=== PATIENT | female | born 1950 | race Caucasian/White ===

== ENCOUNTER 2022-11-01 17:11 | Emergency (ER) | payer BC ==
[~2022-11-01] VITALS: Ht 160 cm; Wt 71.2 kg
[2022-11-01] MEDS ORDERED: PERI8TAB2 (17:21)
[2022-11-01] MEDS ORDERED: INDA25TAB (17:21)
[2022-11-01] MEDS ORDERED: BISO5TAB14 (17:21)
[2022-11-01] MEDS ORDERED: ROSU20TA61 (17:21)
[2022-11-01 19:09] LABS: BASO # 0.1 10^3/uL (0.0-0.2); BASO % 0.8 % (0.0-1.0); EOS # 0.1 10^3/uL (0.0-0.5); EOS % 0.8 % (0.0-3.0); LYMPH # 0.9 10^3/uL (1.5-5.0); LYMPH % 8.2 % (24.0-44.0); MEAN CORPUSCULAR HEMOGLOBIN 29.9 pg (27.0-33.0); MEAN CORPUSCULAR HGB CONC 33.3 g/dl (32.0-36.5); MEAN CORPUSCULAR VOLUME 89.7 fl (80.0-96.0); MONO # 0.1 10^3/uL (0.0-0.8); NEUTROPHILS # 9.3 10^3/uL (1.5-8.5); NEUTROPHILS % 88.5 % (36.0-66.0); PLATELET COUNT, AUTOMATED 488 10^3/uL (150-450); RED BLOOD COUNT 4.35 10^6/uL (4.00-5.40); WHITE BLOOD COUNT 10.5 10^3/uL (4.0-10.0)
[2022-11-01 19:14] LABS: INR 0.95; PARTIAL THROMBOPLASTIN TIME 29.8 SECONDS (24.8-34.2); PROTHROMBIN TIME 12.9 SECONDS (12.5-14.5)
[2022-11-01 19:47] LABS: ALBUMIN 3.6 G/DL (3.2-5.2); BILIRUBIN,DIRECT 2.8 MG/DL (<0.4); BILIRUBIN,TOTAL 3.8 MG/DL (0.3-1.2); CALCIUM LEVEL 10.9 MG/DL (8.3-10.6); CREATININE FOR GFR 1.81 MG/DL (0.55-1.30); GLOMERULAR FILTRATION RATE 29.2 (>39); POTASSIUM SERUM 3.5 MMOL/L (3.5-5.1); TOTAL PROTEIN 7.4 G/DL (5.7-8.2)
[2022-11-01] MEDS ORDERED: NS 1,000 ML IV ONE (20:30)
[2022-11-02 00:45] VITALS: BP 159/75; TEMP 96.6; O2SAT 99
== END 2022-11-02 01:05 | disposition short-term general hospital (02) ==
LOC: M ED 17:11
DX: K83.1 Obstruction of bile duct (principal); I10 Essential (primary) hypertension; E78.5 Hyperlipidemia, unspecified; Z88.1 Allergy status to other antibiotic agents; Z79.899 Other long term (current) drug therapy

== ENCOUNTER → 2022-11-01 | Outpatient (CLI) | payer BC ==
[~2022-11-01] MED LIST: BISO5TAB14; INDA25TAB; PERI8TAB2; ROSU20TA61
[2022-11-01 14:15] LABS: BASO # 0.1 10^3/uL (0.0-0.2); BASO % 1.2 % (0.0-1.0); EOS # 0.7 10^3/uL (0.0-0.5); HEMATOCRIT 37.9 % (36.0-47.0); HEMOGLOBIN 12.7 g/dl (12.0-15.5); LYMPH % 18.3 % (24.0-44.0); MEAN CORPUSCULAR HEMOGLOBIN 29.7 pg (27.0-33.0); MEAN CORPUSCULAR HGB CONC 33.5 g/dl (32.0-36.5); MEAN CORPUSCULAR VOLUME 88.8 fl (80.0-96.0); MONO # 0.8 10^3/uL (0.0-0.8); MONO % 7.3 % (2.0-8.0); NEUTROPHILS # 7.4 10^3/uL (1.5-8.5); NEUTROPHILS % 66.7 % (36.0-66.0); PLATELET COUNT, AUTOMATED 503 10^3/uL (150-450); RED BLOOD COUNT 4.27 10^6/uL (4.00-5.40); WHITE BLOOD COUNT 11.1 10^3/uL (4.0-10.0)
[2022-11-01 14:33] LABS: LIPASE 108 U/L (12-53)
[2022-11-01 14:35] LABS: AMYLASE 120 U/L (30-118)
[2022-11-01 14:46] LABS: HEPATITIS B SURFACE ANTIGEN NEGATIVE (NEGATIVE)
[2022-11-01 15:06] LABS: HEPATITIS B CORE ANTIBODY IGM NEGATIVE (NEGATIVE)
[2022-11-01 15:07] LABS: HEPATITIS C VIRUS ABY INDEX 0.08 INDEX (<0.8)
[2022-11-01 15:48] LABS: ALBUMIN 3.6 G/DL (3.2-5.2); ALKALINE PHOSPHATASE 1501 U/L (46-116); ALT/SGPT 448 U/L (7.0-40); AST/SGOT 137 U/L (<34); BILIRUBIN,TOTAL 3.8 MG/DL (0.3-1.2); BLOOD UREA NITROGEN 38 MG/DL (9-23); CALCIUM LEVEL 10.1 MG/DL (8.3-10.6); CARBON DIOXIDE LEVEL 25 MMOL/L (20-31); CHLORIDE LEVEL 102 MMOL/L (98-107); CREATININE FOR GFR 1.86 MG/DL (0.55-1.30); GLOMERULAR FILTRATION RATE 28.3 (>39); GLUCOSE, FASTING 184 MG/DL (74-106); POTASSIUM SERUM 3.1 MMOL/L (3.5-5.1); SODIUM LEVEL 136 MMOL/L (136-145); TOTAL PROTEIN 7.1 G/DL (5.7-8.2)
== END ==
LOC: M WUC 12:44
PROVIDERS: ATTEND Physician Assistant
DX: R06.02 Shortness of breath (principal); L29.8 Other pruritus; R10.815 Periumbilic abdominal tenderness

== ENCOUNTER → 2022-12-07 | Outpatient (CLI) | payer BC ==
[2022-12-07 16:49] LABS: BASO % 0.5 % (0.0-1.0); EOS # 0.1 10^3/uL (0.0-0.5); EOS % 1.6 % (0.0-3.0); HEMATOCRIT 29.7 % (36.0-47.0); HEMOGLOBIN 9.7 g/dl (12.0-15.5); LYMPH # 1.3 10^3/uL (1.5-5.0); LYMPH % 15.1 % (24.0-44.0); MEAN CORPUSCULAR HEMOGLOBIN 28.9 pg (27.0-33.0); MEAN CORPUSCULAR HGB CONC 32.7 g/dl (32.0-36.5); MEAN CORPUSCULAR VOLUME 88.4 fl (80.0-96.0); MONO # 0.3 10^3/uL (0.0-0.8); NEUTROPHILS # 6.6 10^3/uL (1.5-8.5); NEUTROPHILS % 78.4 % (36.0-66.0); PLATELET COUNT, AUTOMATED 324 10^3/uL (150-450); RED BLOOD COUNT 3.36 10^6/uL (4.00-5.40); WHITE BLOOD COUNT 8.3 10^3/uL (4.0-10.0)
[2022-12-07 17:22] LABS: ALBUMIN 2.7 G/DL (3.2-5.2); ALKALINE PHOSPHATASE 113 U/L (46-116); ALT/SGPT 16 U/L (7.0-40); AST/SGOT 11 U/L (<34); BILIRUBIN,TOTAL 0.6 MG/DL (0.3-1.2); BLOOD UREA NITROGEN 15 MG/DL (9-23); CARBON DIOXIDE LEVEL 19 MMOL/L (20-31); CHLORIDE LEVEL 102 MMOL/L (98-107); CREATININE FOR GFR 0.86 MG/DL (0.55-1.30); GLOMERULAR FILTRATION RATE > 60.0 (>39); GLUCOSE, FASTING 97 MG/DL (74-106); POTASSIUM SERUM 3.5 MMOL/L (3.5-5.1); SODIUM LEVEL 137 MMOL/L (136-145); TOTAL PROTEIN 6.8 G/DL (5.7-8.2)
[2022-12-09 01:43] LABS: PREALBUMIN 14.1 MG/DL (10.0-40.0)
== END ==
LOC: M RAD 15:15
DX: K83.1 Obstruction of bile duct (principal); K82.8 Other specified diseases of gallbladder

== ENCOUNTER → 2023-01-18 | Outpatient (CLI) | payer BC ==
[~2023-01-18] MED LIST changes: +ASPI81CH33 PO; +CREO12CA PO; +METO1TAB7 PO; +ONDA-84 PO; +PANT40TA29 PO; +POTA1TAB23 PO
== END ==
LOC: M ONCR 12:41
PROVIDERS: ATTEND General Practice
DX: C24.1 Malignant neoplasm of ampulla of Vater (principal); Z71.2 Person consulting for explanation of examination or test findings; Z79.82 Long term (current) use of aspirin; Z79.899 Other long term (current) drug therapy; Z80.3 Family history of malignant neoplasm of breast; Z87.891 Personal history of nicotine dependence; Z88.1 Allergy status to other antibiotic agents

== ENCOUNTER → 2023-01-23 | Outpatient (CLI) | payer BC ==
[~2023-01-23] MED LIST changes: +DIFI200T PO; +IRON27TA2 PO; +LIDO30CR18 TOP; +PROC10TA5 PO; +VANC125C10 PO; +VANC125C3 PO
== END ==
LOC: M ONCM 07:33
PROVIDERS: ATTEND Dietitian, Registered
DX: C24.1 Malignant neoplasm of ampulla of Vater (principal); Z68.23 Body mass index [BMI] 23.0-23.9, adult; Z71.3 Dietary counseling and surveillance

== ENCOUNTER → 2023-01-23 | Outpatient (CLI) | payer BC ==
[~2023-01-23] VITALS: Ht 160 cm; Wt 60.0 kg
[~2023-01-23] MED LIST changes: -DIFI200T PO; -IRON27TA2 PO; -LIDO30CR18 TOP; +LIDOCAINE W/EPINEPHRINE 1% 20ML VIAL As Ordered ONE; +MIDAZOLAM INJ 2MG/2ML VIAL As Ordered ONE; +NS 1,000 ML IV SCH; -PROC10TA5 PO; -VANC125C10 PO; -VANC125C3 PO; +VANCOMYCIN 1000MG/20ML VIAL As Ordered ONE; +VANCOMYCIN HCL 1,000 MG, VIAL MATE ADAPTER 1 EACH in D5W 250 ML IV ONE; +fentaNYL 100 MCG/2 ML INJECTION As Ordered ONE; +hydrALAZINE 20MG/ML 1ML VIAL As Ordered ONE
[2023-01-23 08:09] VITALS: TEMP 98.5
[2023-01-23 12:45] VITALS: BP 158/74; O2SAT 97
== END ==
LOC: M IRPRO 07:31
PROVIDERS: ATTEND Internal Medicine Medical Oncology
DX: C24.1 Malignant neoplasm of ampulla of Vater (principal)
CPT/HCPCS: 36561; J0360; J2250; J3010

== ENCOUNTER → 2023-01-25 | Outpatient (CLI) | payer BC ==
[~2023-01-25] MED LIST changes: -LIDOCAINE W/EPINEPHRINE 1% 20ML VIAL As Ordered ONE; -MIDAZOLAM INJ 2MG/2ML VIAL As Ordered ONE; -NS 1,000 ML IV SCH; -VANCOMYCIN 1000MG/20ML VIAL As Ordered ONE; -VANCOMYCIN HCL 1,000 MG, VIAL MATE ADAPTER 1 EACH in D5W 250 ML IV ONE; -fentaNYL 100 MCG/2 ML INJECTION As Ordered ONE; -hydrALAZINE 20MG/ML 1ML VIAL As Ordered ONE
== END ==
LOC: M RAD 12:37
PROVIDERS: ATTEND Internal Medicine Medical Oncology
DX: E04.1 Nontoxic single thyroid nodule (principal)

== ENCOUNTER 2023-02-05 12:11 | Emergency (ER) | payer BC, MEDICARE ==
[~2023-02-05] VITALS: Ht 160 cm; Wt 60.4 kg
[~2023-02-05 12:11] MED LIST changes: +IRON27TA2 PO; +LIDO30CR18 TOP; +PROC10TA5 PO
[2023-02-05] MEDS ORDERED: ONDANSETRON 4MG 2ML VIAL IV ONE (12:45)
[2023-02-05] MEDS ORDERED: NS 1,000 ML IV ONE (12:45)
[2023-02-05 13:53] LABS: HEMOGLOBIN 10.3 g/dl (12.0-15.5); MEAN CORPUSCULAR HEMOGLOBIN 28.7 pg (27.0-33.0); MEAN CORPUSCULAR HGB CONC 32.2 g/dl (32.0-36.5); MEAN CORPUSCULAR VOLUME 89.1 fl (80.0-96.0); PLATELET COUNT, AUTOMATED 278 10^3/uL (150-450); RED BLOOD COUNT 3.59 10^6/uL (4.00-5.40)
[2023-02-05 13:55] LABS: WHITE BLOOD COUNT 30.5 10^3/uL (4.0-10.0)
[2023-02-05 14:10] LABS: BLOOD UREA NITROGEN 15 MG/DL (9-23); CALCIUM LEVEL 8.9 MG/DL (8.3-10.6); CARBON DIOXIDE LEVEL 22 MMOL/L (20-31); CHLORIDE LEVEL 109 MMOL/L (98-107); CREATININE FOR GFR 0.95 MG/DL (0.55-1.30); GLOMERULAR FILTRATION RATE > 60.0 (>39); GLUCOSE, FASTING 105 MG/DL (74-106); MAGNESIUM LEVEL 1.8 MG/DL (1.8-2.4); POTASSIUM SERUM 3.8 MMOL/L (3.5-5.1); SODIUM LEVEL 140 MMOL/L (136-145)
[2023-02-05 14:28] LABS: ATYPICAL LYMPH 1 % (0-5); METAMYELOCYTES 1 % (0-0); MONOCYTES 2 % (0-5); NEUTROPHILS 93 % (28-66)
[2023-02-05 14:30] LABS: PLATELET ESTIMATE NORMAL (NORMAL)
[2023-02-05] MEDS ORDERED: VANCOMYCIN ORAL SOL 250MG/5ML ORAL SYRINGE PO ONE (16:55)
[2023-02-05] MEDS ORDERED: VANC125C3 PO (17:59)
[2023-02-05] MEDS ORDERED: SODIUM CHLORIDE 0.9% INJ 10 ML SYR IV PRN (18:35)
[2023-02-05 19:16] VITALS: BP 161/75; TEMP 99.1; O2SAT 99
== END 2023-02-05 19:17 | disposition home or self-care (01) ==
LOC: EDBD 12:11 → M ED 12:11
DX: A04.72 Enterocolitis due to Clostridium difficile, not specified as recurrent (principal); I10 Essential (primary) hypertension; K21.9 Gastro-esophageal reflux disease without esophagitis; F10.10 Alcohol abuse, uncomplicated; Z87.891 Personal history of nicotine dependence; Z88.1 Allergy status to other antibiotic agents; Z79.82 Long term (current) use of aspirin; Z79.811 Long term (current) use of aromatase inhibitors; Z79.899 Other long term (current) drug therapy
CPT/HCPCS: 80048; 83735; 85025; 87486; 87507; 87581; 87633; 87798; 96361; 96374; 99285; J2405

== ENCOUNTER 2023-02-13 09:34 | Outpatient (RCR) | payer BC, MEDICARE ==
[~2023-02-13 09:34] MED LIST changes: +DIFI200T PO; +VANC125C3 PO
[2023-02-13] MEDS ORDERED: VANC125C10 PO (11:23)
== END 2023-03-06 ==
LOC: M ONCR 09:34
PROVIDERS: ATTEND General Practice
DX: Z51.0 Encounter for antineoplastic radiation therapy (principal); C24.1 Malignant neoplasm of ampulla of Vater

== ENCOUNTER → 2023-10-04 | Outpatient (CLI) | payer MEDICARE, BC ==
[~2023-10-04] MED LIST changes: +GASTROGRAFIN SOLUTION 30ML ONE; +HYOS1TAB PO; +INDA2.5T2; -INDA25TAB; +ISOVUE-370 76% 100ML VIAL ONE; +LOMO2.5T PO; +OPIU1TIN6 PO; +VANC125C12 PO
== END ==
LOC: M PLAIMG 11:00
PROVIDERS: ATTEND Internal Medicine Hematology & Oncology
DX: C24.1 Malignant neoplasm of ampulla of Vater (principal)
CPT/HCPCS: 71260; 74177; Q9963; Q9967

== ENCOUNTER → 2023-10-29 | Outpatient (CLI) | payer MEDICARE, BC ==
[~2023-10-29] MED LIST changes: -GASTROGRAFIN SOLUTION 30ML ONE; -ISOVUE-370 76% 100ML VIAL ONE
== END ==
LOC: M PLARAD 13:28
PROVIDERS: ATTEND Internal Medicine Hematology & Oncology
DX: C24.1 Malignant neoplasm of ampulla of Vater (principal)

== ENCOUNTER → 2023-12-31 | Outpatient (CLI) | payer MEDICARE, BC | LOC: M PLARAD 09:00 | PROVIDERS: ATTEND Internal Medicine Hematology & Oncology | DX: C24.1 Malignant neoplasm of ampulla of Vater (principal) | CPT/HCPCS: 78815; A9552 ==

== ENCOUNTER → 2024-11-25 | Outpatient (CLI) | payer MEDICARE, BC ==
[~2024-11-25] MED LIST changes: +CREO3600 PO; +POTA-150 PO; -ROSU20TA61; +ROSU20TA86; +VANC125C13 PO; -VANC125C3 PO
== END ==
LOC: M PLARAD 14:59
DX: C24.1 Malignant neoplasm of ampulla of Vater (principal)
CPT/HCPCS: 78815; A9552